=== PATIENT | female | born 1975 | race African-American/Black ===

== ENCOUNTER 2017-05-10 10:47 | Emergency (ER) | payer SELFPAY ==
[~2017-05-10] VITALS: Ht 162.6 cm; Wt 65.0 kg
[2017-05-10 11:18] VITALS: BP 114/76
== END 2017-05-10 13:40 | disposition left against medical advice (07) ==
LOC: ER 11:27
DX: J11.1 Influenza due to unidentified influenza virus with other respiratory manifestations (principal); Z53.21 Procedure and treatment not carried out due to patient leaving prior to being seen by health care provider